=== PATIENT | female | born 1960 | race Two or more races ===

== ENCOUNTER 2019-03-26 21:21 | Emergency (ER) | payer BC ==
[~2019-03-26] VITALS: Ht 165.1 cm; Wt 63.5 kg
[2019-03-26] MEDS ORDERED: ACETAMINOPHEN 325 MG TAB PO ONE (21:45)
[2019-03-26] MEDS ORDERED: ONDANSETRON ODT 4 MG TAB PO ONE (21:45)
[2019-03-27 00:27] VITALS: BP 104/39
== END 2019-03-27 00:32 | disposition home or self-care (01) ==
LOC: ER 21:25
DX: G43.909 Migraine, unspecified, not intractable, without status migrainosus (principal)
CPT/HCPCS: 70450; 72125; 99284; Q0162